=== PATIENT | male | born 1965 | race Caucasian/White ===

== ENCOUNTER 2017-12-08 05:45 | Emergency (ER) | payer MEDICAID ==
[2017-12-08 05:55] VITALS: BP 131/73
--- NOTE | 2017-12-08 06:16 | EDPHY ---
H & P Stated Complaint: WEAKNESS,'I DONT FEEL GOOD, IM DIABETIC', EATING FOOD IN WAIT ROOM Time Seen by Provider: 12/08/17 06:02 HPI/ROS: Chief Complaint: "I do not feel well" HPI: A 52-year-old homeless type 2 diabetic is presenting to the emergency department this morning complaining of"not feeling well". He states "I think I may have cancer, or maybe I was exposed to mustard gas, or maybe abscess exposed to a big dose of radiation". Patient states that he felt like his blood sugar might be low little earlier was eating in the waiting room and drinking a 16 oz bottle of regular Coca-Cola. Does state he has got some pain in his bilateral lower back. No new numbness or weakness. He is ambulating without any difficulty. Some subjective chills. No measured fever at home. No nausea or vomiting. No chest pain or shortness of breath. No abdominal pain. Also concerned that he might have impetigo because he has several lesions on his face and back and arms. Denies any alcohol or drug use. Denies any falls or any other traumas or injuries. Symptoms have been present for past day or so. ROS: 10 point Review of Systems is negative except as noted in the HPI. PMH: Diabetes Social History: Denies smoking, denies alcohol, denies other drug use Family History: non-contributory Physical Exam: Gen: Awake, Alert, No Distress HEENT: Nose: no rhinorrhea Eyes: PERRLA, EOMI Mouth: Moist mucosa Neck: Supple, no JVD Chest: nontender, lungs clear to auscultation Heart: S1, S2 normal, no murmur Abd: Soft, non-tender, no guarding Back: no CVA tenderness, no midline tenderness Ext: no edema, non-tender Skin: no rash Neuro: CN II-XII intact, Sensation grossly intact, Strength 5/5 in bilateral upper and lower extremities - Personal History Current Tetanus/Diphtheria Vaccine: Yes - Medical/Surgical History Hx Asthma: No Hx Chronic Respiratory Disease: No Hx Diabetes: Yes Hx Cardiac Disease: No Hx Renal Disease: No Hx Cirrhosis: No Hx Alcoholism: No Hx HIV/AIDS: No Hx Splenectomy or Spleen Trauma: No Other PMH: DIABETES, DEPRESSION - Social History Smoking Status: Current some day smoker Constitutional: Initial Vital Signs Temperature (C) 36.9 C 12/08/17 05:50 Heart Rate 93 12/08/17 05:50 Respiratory Rate 18 12/08/17 05:50 Blood Pressure 131/73 H 12/08/17 05:50 O2 Sat (%) 96 12/08/17 05:50 O2 Delivery Mode Room Air Allergies/Adverse Reactions: No Known Allergies Allergy (Unverified 12/08/17 05:49) Home Medications: Medication Instructions Recorded Glipizide 12/08/17 Insulin Regular Human 12/08/17 Lantus 12/08/17 Neurontin 12/08/17 Medical Decision Making ED Course/Re-evaluation: 52-year-old diabetic male whose states he does not feel well. He has a normal exam. Normal vital signs. He is not have any findings suggestive of infection. He is not tachycardic. Does not appear dehydrated. He is eating and drinking without any difficulty in the emergency department. Blood sugars to 90. No evidence of acute emergent medical process. Symptoms likely consistent with dehydration from his hyperglycemia. I have counseled him not to drink regular soda as this will cause his blood sugar to strike. He will follow up with primary care physician at [facility]. - Data Points Laboratory Results: 12/08/17 06:13 POC Glucose 293 mg/dL H mg/dL (70-100) Point of Care Test Results: 12/08/17 06:13 POC Glucose 293 H Departure - Departure Disposition: Home, Routine, Self-Care Clinical Impression: Hyperglycemia Condition: Good Instructions: Diabetic Hyperglycemia (ED) Additional Instructions: Please do not drink regular soda or other sugary drinks as this will cause your blood sugar to go dangerously high. Make sure you drink plenty of water, at least 8, 8 oz glasses a day. Follow up with primary care doctor in 2-3 days for further evaluation. Referrals: NONE *PRIMARY CARE P,. [Primary Care Provider] - As per Instructions [facility],. [Clinic] - As per Instructions
== END 2017-12-08 06:26 | disposition home or self-care (01) ==
DX: E11.65 Type 2 diabetes mellitus with hyperglycemia (principal); F17.200 Nicotine dependence, unspecified, uncomplicated; Z79.84 Long term (current) use of oral hypoglycemic drugs